=== PATIENT | male | born 1990 | race African-American/Black ===

== ENCOUNTER 2016-12-31 13:05 | Emergency (ER) | payer SELFPAY ==
[~2016-12-31] VITALS: Ht 170.2 cm; Wt 63.5 kg
[2016-12-31 13:33] VITALS: BP 145/81
--- NOTE | 2017-01-04 16:17 | Emergency Room Report ---
History of Present Illness General Chief Complaint: Pain Source: Patient, EMS Present Illness HPI 26-year-old male since ED for evaluation. Patient brought in by EMS. Patient was found running down the street flagging down ambulance. Patient was complaining of chest pain. Upon arrival patient is unable to provide any additional history. Is screaming and crying. Calling family on the telephone. patient states he is [place] from [place]. Denies any chest pain at this time. Denies alcohol or drug use. No other aggravating or relieving factors. Denies any other associated symptoms Allergies: Coded Allergies: No Known Allergies (Unverified , 12/31/16) Patient History Past Medical History: none Past Surgical History: none Pertinent Family History: none Social History: Denies: alcohol use, drug use, smoking Immunizations: UTD Reviewed Nursing Documentation: PMH: Agreed, PSxH: Agreed Nursing Documentation-PMH Past Medical History: No History, Except For Hx Hypertension: Yes Hx Gastrointestinal Problems: Yes - HEP C Review of Systems All Other Systems: negative except mentioned in HPI Physical Exam Vital Signs Date Time Temp Pulse Resp B/P Pulse Ox O2 Delivery O2 Flow Rate FiO2 12/31/16 12:59 98.8 90 18 127/77 99 Room Air Sp02 EP Interpretation: reviewed, normal General Appearance: alert, GCS 15, non-toxic, mild distress Head: normocephalic, atraumatic Eyes: bilateral eye PERRL, bilateral eye normal inspection ENT: hearing grossly normal, normal pharynx, no angioedema, normal voice Neck: full range of motion, supple/symm/no masses Respiratory: chest non-tender, lungs clear, normal breath sounds, speaking full sentences Cardiovascular #1: regular rate, rhythm, no edema Cardiovascular #2: 2+ carotid (R), 2+ carotid (L), 2+ radial (R), 2+ radial (L) , 2+ dorsalis pedis (R), 2+ dorsalis pedis (L) Gastrointestinal: normal bowel sounds, non tender, soft, non-distended, no guarding, no rebound Rectal: deferred Genitourinary: normal inspection, no CVA tenderness Musculoskeletal: back normal, gait/station normal, normal range of motion, non- tender, calf tenderness Neurologic: alert, oriented x3, responsive, motor strength/tone normal, sensory intact, other - agitated Psychiatric: other - agitated Reflexes: 3+ bicep (R), 3+ bicep (L), 3+ tricep (R), 3+ tricep (L), 3+ knee (R) , 3+ knee (L) Skin: normal color, no rash, warm/dry, well hydrated Lymphatic: no adenopathy Medical Decision Making Diagnostic Impression: Primary Impression: Pain ER Course Hospital Course 26-year-old M presents ED complaining of chest pain Differential diagnoses include: Rib fracture, KS/unstable angina, contusion, muscle strain Clinical course Patient placed on stretcher. After initial history and physical I ordered labs , EKG, chest x-ray. Prior to receiving EKG or drug last patient became very agitated again. Patient seen through ER. I explained to patient that if he did not stay seated in a stretcher and comply he will have to be removed in the ER. Patient walked out of the ER with his belongings Diagnosis-pain Patient eloped from ER Last Vital Signs Date Time Temp Pulse Resp B/P Pulse Ox O2 Delivery O2 Flow Rate FiO2 12/31/16 13:33 87 14 145/81 98 Room Air 12/31/16 13:33 98.8 Status: unchanged Disposition: ELOPED Condition: Unknown Referrals: NOT CHOSEN JACOB/,REFERRING (PCP) MARY WILHELM M.D. Jan 04, 2017 16:17
== END 2016-12-31 13:40 | disposition left against medical advice (07) ==
LOC: EDBD 13:05 → EMR 13:15
DX: R07.81 Pleurodynia (principal); Z53.21 Procedure and treatment not carried out due to patient leaving prior to being seen by health care provider
CPT/HCPCS: 99281